=== PATIENT | female | born 1970 | race Hispanic/Latino ===

== ENCOUNTER 2023-10-15 09:42 | Emergency (ER) | payer OTHER ==
[2023-10-15] VITALS (7 sets, daily range): BP systolic 110–145; BP diastolic 54–102
[~2023-10-15] VITALS: Ht 163.8 cm; Wt 87.0 kg
[~2023-10-15 09:42] MED LIST: DIABETA2.5 MG OR; NO HOME MEDS; TRAMADOL HCL50 MG PO; ULTRAM50 M1 PO
[2023-10-15] MEDS ORDERED: NAPROXEN500 MG PO (11:48)
== END 2023-10-15 12:20 | disposition home or self-care (01) | DRG 204 ==
LOC: ED 09:42
DX: R07.81 Pleurodynia (principal); M54.2 Cervicalgia; M54.6 Pain in thoracic spine; M54.50 Low back pain, unspecified; W01.0XXA Fall on same level from slipping, tripping and stumbling without subsequent striking against object, initial encounter; Y92.89 Other specified places as the place of occurrence of the external cause; Y99.0 Civilian activity done for income or pay

== ENCOUNTER 2023-12-23 22:49 | Emergency (ER) | payer SELFPAY ==
[~2023-12-23] VITALS: Ht 163.8 cm; Wt 91.0 kg
[~2023-12-23 22:49] MED LIST changes: +NAPROXEN500 MG PO
[2023-12-23] MEDS ORDERED: ACETAMINOPHEN 500 MG TAB PO ONE (23:05)
[2023-12-23] MEDS ORDERED: ASPIRIN 81 MG/TAB PO ONE (23:05)
[2023-12-23] MEDS ORDERED: KETOROLAC TROMETHAMINE 30 MG/ML SDV IV ONE (23:05)
[2023-12-23 23:10] VITALS: BP 150/79
[2023-12-23] MEDS ORDERED: traMADol HCL 50 MG/TAB PO ONE (23:10)
[2023-12-23] MEDS ORDERED: SODIUM CHLORIDE 0.9% 1,000 ML IV ONE (23:10)
[2023-12-23 23:15] VITALS: BP 141/78
[2023-12-23 23:25] LABS: BASO% 0.2 % (0-3); EOS% 1.4 % (0-8); HEMATOCRIT 41.3 % (37.0-47.0); HEMOGLOBIN 13.7 g/dl (12.0-16.0); IMMATURE GRANULOCYTES 0.6 % (0.0-5.0); LYMPH% 26.7 % (15-41); MEAN CELL VOLUME 86.4 fL CALC (80.0-100.0); MEAN CORPUSCULAR HGB 28.7 pG CALC (26.0-32.0); MEAN CORPUSCULAR HGB CONC 33.2 g/dL CAL (32.0-36.0); MONO% 8.9 % (2-13); NEUT# 5.19 thou/uL (2.00-7.15); NEUT% 62.2 % (42-76); RED BLOOD COUNT 4.78 mill/uL (4.20-5.60)
[2023-12-23 23:30] VITALS: BP 163/78
[2023-12-23 23:38] LABS: ALBUMIN 4.7 g/dL (3.2-5.0); ALKALINE PHOSPHATASE 143 u/l (38-126); ANION GAP 10 (6-22 (CALC)); BILIRUBIN, TOTAL 0.4 mg/dL (0.02-1.3); BUN 16 mg/dL (7-17); BUN/CREATININE RATIO 23 (12-20 (CALC)); CARBON DIOXIDE 25 mmol/l (22-30); CHLORIDE 111 mmol/l (95-108); CREATININE 0.7 mg/dL (0.5-1.0); ESTIMATED GFR 103 ML/MIN (>=90 (CALC)); POTASSIUM 3.9 mmol/l (3.5-5.1); SGOT/AST 26 u/l (14-36); SODIUM 142 mmol/l (137-146); TOTAL PROTEIN 8.1 g/dL (6.3-8.2)
[2023-12-23 23:45] VITALS: BP 139/87
[2023-12-24] MEDS ORDERED: NAPROXEN375 MG PO (01:16)
[2023-12-24] MEDS ORDERED: TRAMADOL HCL50 MG PO (01:16)
[2023-12-24 01:36] VITALS: BP 163/78
== END 2023-12-24 01:36 | disposition home or self-care (01) | DRG 204 ==
LOC: ED 22:49
PROVIDERS: Family Medicine
DX: R07.81 Pleurodynia (principal)